=== PATIENT | male | born 1975 | race Caucasian/White ===

== ENCOUNTER 2023-09-19 22:13 | Emergency (ER) | payer OTHER ==
[~2023-09-19] VITALS: Ht 157.5 cm; Wt 88.0 kg
[2023-09-19 22:24] VITALS: O2SAT 95
[2023-09-20] MEDS ORDERED: CEPH500C2 MT (00:21)
[2023-09-20] MEDS ORDERED: BO1 TP (00:24)
[2023-09-20] MEDS: LIDOCAINE HCL/PF 1% 10 MG/ML 5ML VIAL INFIL ONE (00:36)
[2023-09-20] MEDS: BACITRACIN ZINC OINT UDPKT TOP ONE (00:38)
[2023-09-20 00:41] VITALS: BP 171/107; PULSE 93; RESP 14; TEMP 98.9
== END 2023-09-20 00:42 | disposition home or self-care (01) ==
LOC: ER 22:13
DX: H92.02 Otalgia, left ear (principal); I10 Essential (primary) hypertension
CPT/HCPCS: 99284; 70450; 12011; J3490